=== PATIENT | female | born 1975 | race Caucasian/White ===

== ENCOUNTER → 2016-11-09 | Outpatient (CLI) | payer OTHER ==
[~2016-11-09] MED LIST: FERR28TA2 PO; IBUP-103 PO; MAGN250T3 PO; MULTTAB58 PO; OXYC5TAB PO
== END | disposition home or self-care (01) ==
LOC: C.PAPS 11-06 14:58
PROVIDERS: ATTEND Obstetrics & Gynecology
DX: Z01.419 Encounter for gynecological examination (general) (routine) without abnormal findings (principal)